=== PATIENT | female | born 1945 | race Caucasian/White ===

== ENCOUNTER 2024-09-10 16:37 | Outpatient (CLI) | payer OTHER, SELFPAY ==
[2024-09-10 16:47] LABS: Microscopic, Urine URINE MICROSCOPIC (MICROSCOPIC)
[2024-09-10 17:03] LABS: Appearance,Urine CLEAR (Clear); Bilirubin,Urine Negative (Negative); Blood, Urine 1+ (Negative); Color,Urine YELLOW (Yellow); Glucose,Urine (UA) 3+ (Negative); Ketones,Urine Negative (Negative); Leukocyte Esterase,Urine 1+ (Negative); Nitrate,Urine POSITIVE (Negative); Protein,Urine 1+ (Negative); Urobilinogen,Urine 0.2 EU/dl (0.2)
[2024-09-10 18:07] LABS: Bacteria,Urine Trace /lpf
== END 2024-09-10 23:59 | disposition home or self-care (01) ==
PROVIDERS: PCP Family Medicine Hospice and Palliative Medicine; Visit Provider Family Medicine Hospice and Palliative Medicine
DX: C43.9 Malignant melanoma of skin, unspecified (principal); C79.31 Secondary malignant neoplasm of brain; C78.89 Secondary malignant neoplasm of other digestive organs
CPT/HCPCS: 81001; 87086; 87088; 87186